=== PATIENT | female | born 1945 ===

== ENCOUNTER 2018-07-29 07:38 | Day surgery (SDC) | payer SELFPAY ==
[2018-07-24 07:43] VITALS: BMI 22.2
[2018-07-29] MEDS ORDERED: Propofol 10 mg/ml Inj (20 ML) ONE (09:22)
[2018-07-29] MEDS ORDERED: Midazolam 2 MG/2 ML VIAL ONE (09:22)
[2018-07-29] MEDS ORDERED: ceFAZolin IV 1 gm in Dextrose 1 GM/50 ML BAG IVPB ONE (09:26)
--- NOTE | 2018-07-29 11:14 | PCM.SURG1 ---
Surgeon's Initial Post Op Note - Surgeon's Notes Surgeon: Dr. Thomas Resident Surgeon: Dr. Forte PGY3, Magalis MS3 Type of Anesthesia: General Endo Pre-Operative Diagnosis: Venous insufficiency Operative Findings: See operative dictation Post-Operative Diagnosis: Venous insufficeny Operation Performed: Vein stripping Specimen/Specimens Removed: Left leg vein Estimated Blood Loss: EBL {In ML}: 150 Blood Products Given: N/A Drains Used: No Drains Post-Op Condition: Good Date of Surgery/Procedure: 07/29/18 Time of Surgery/Procedure: 11:14
[2018-07-29] MEDS: HYDROmorphone 0.5 mg/0.5 ml ISec IVP PRN ×2 (11:35→12:23)
[2018-07-29 13:23] VITALS: TEMP 97.7
[2018-07-29 17:16] VITALS: BP 112/61; PULSE 74; RESP 18; O2SAT 97
--- NOTE | 2018-07-29 21:28 | OP ---
PROCEDURE DATE: 07/29/2018 PREOPERATIVE DIAGNOSIS: Varicose vein, left leg. POSTOPERATIVE DIAGNOSIS: Varicose vein, left leg. PROCEDURE: Stripping and ligation of greater saphenous vein system left leg and microphlebectomy of the left leg. SURGEON: Justice Thomas Jr., MD. CORSET MAKER: Guillermo Forte DO ANESTHESIOLOGIST: Marian Storm CRNA INDICATION FOR PROCEDURE: The patient is a 72-year-old woman with large varices on both legs, left much worse than the right. The large veins are almost an inch in size particularly in the calf region and has tributary of the greater saphenous vein. OPERATIVE FINDINGS: The vein was stripped from the ankle to the knee and then from the groin down to the knee in two segments. In addition, numerous tributaries have been marked on the skin, were ligated and divided using microphlebectomy technique. At the end, the wounds were approximate and Steri-Strips were applied as well as small subcuticular sutures. A mildly compressive dressing was applied at the end of the procedure. Blood loss was 150 mL. Operation carried out was stripping and ligation of varicose vein left leg and microphlebectomy. Justice Thomas Jr., MD
== END 2018-07-29 17:00 | disposition home or self-care (01) ==
LOC: C.SDS 07:38
PROVIDERS: ATTEND Surgery Vascular Surgery
DX: I83.892 Varicose veins of left lower extremity with other complications (principal); I87.2 Venous insufficiency (chronic) (peripheral)
CPT/HCPCS: 37722; 37765; 88304; J0690; J1170; J2250; J2704; J3010; J7120